=== PATIENT | female | born 1935 | race Hispanic/Latino ===

== ENCOUNTER 2017-03-20 04:34 | Observation (INO) | payer MEDICARE ==
[~2017-03-20] VITALS: Ht 152.4 cm; Wt 64.9 kg
[~2017-03-20 04:34] MED LIST: ADV500 IH; ASPI-1197 PO; CEFD300C3 PO; CLOP75TA14 PO; FURO20TA6 GT; LACT1CAP58 PO; LEVO125T95 PO; LEVO500T2 PO; LISI-613 PO; LISI-617 PO; LORA1TAB3 PO; LOVA10TA2 PO; METO-408 PO; ONDA8TAB5 PO; POTA8TAB7 PO; PRED20TA3 PO; TYL3 PO
[2017-03-20] MEDS ORDERED: SODIUM CHLORIDE 0.9% 1000ML 1,000 ML IV ONE (04:42)
[2017-03-20] MEDS ORDERED: HYDROXYZINE HCL 25 MG TABLET ONE (04:42)
[2017-03-20 06:24] LABS: BASOPHILS % (AUTO) 0.3 % (0.0-5.0); HEMATOCRIT 34.9 % (36-48); LYMPHOCYTES % (AUTO) 27.2 % (21.0-51.0); MEAN CORPUSCULAR HEMOGLOBIN 35.1 pg (27.0-33.0); MEAN CORPUSCULAR HGB CONC 34.4 g/dL (32.0-36.0); MEAN CORPUSCULAR VOLUME 102.1 fL (79-99); MONOCYTES % (AUTO) 10.7 % (3.0-13.0); NEUTROPHILS % (AUTO) 60.8 % (40.0-77.0); PLATELET COUNT (AUTO) 436 K/uL (130-400); RED BLOOD CELL COUNT(AUTO) 3.41 MIL/uL (4.00-5.50); RED CELL DISTRIBUTION WIDTH 13.9 % (11.0-15.5); WHITE BLOOD COUNT (AUTO) 8.5 K/uL (4.8-10.8)
[2017-03-20 06:31] LABS: CREATININE 0.7 mg/dL (0.5-1.5); POTASSIUM 3.6 mmol/L (3.5-5.1)
[2017-03-20 06:45] LABS: THYROID STIMULATING HORMONE 4.42 uIU/mL (0.36-3.74)
[2017-03-20 06:56] LABS: APPEARANCE,URINE CLEAR (CLEAR); BILIRUBIN,URINE NEGATIVE (NEGATIVE); COLOR,URINE YELLOW (YELLOW); GLUCOSE, URINE (UA) NEGATIVE (NEGATIVE); KETONES,URINE NEGATIVE (NEGATIVE); LEUKOCYTE ESTERASE ,URINE TRACE (NEGATIVE); NITRATE,URINE NEGATIVE (NEGATIVE); OCCULT BLOOD,URINE TRACE-LYSED (NEGATIVE); PROTEIN,URINE NEGATIVE (NEGATIVE); UROBILINOGEN,URINE 0.2 mg/dL (0.2-1.0)
[2017-03-20] MEDS ORDERED: ASPIRIN 81MG TAB.CHEW ONE (07:30)
[2017-03-20 07:31] LABS: BACTERIA,URINE Rare /HPF (None Seen); RBC,URINE 0-1 /HPF (0-1); SQUAMOUS EPITHELIAL CELL,UR Rare /LPF (0-2)
[2017-03-20] MEDS ORDERED: GUAIFENESIN-DM 200/20 MG 10 ML PO PRN (08:45)
[2017-03-20] MEDS ORDERED: LACTULOSE 20 GM/30 ML UDCUP PO PRN (08:45)
[2017-03-20] MEDS ORDERED: MAG HYDROX/AL HYDROX/SIMETH ES 30 ML SUSP UDCUP PO PRN (08:45)
[2017-03-20] MEDS ORDERED: ONDANSETRON HCL 4 MG/2 ML VIAL IV PRN (08:45)
[2017-03-20] MEDS ORDERED: ACETAMINOPHEN 325 MG TAB PO PRN ×2 (08:45)
[2017-03-20] MEDS ORDERED: MORPHINE SULFATE 2 MG/ML 1ML SYG IV PRN (08:45)
[2017-03-20] MEDS: PANTOPRAZOLE SODIUM 40 MG TABLET.DR PO SCH (09:00)
[2017-03-20] MEDS ORDERED: LORAZEPAM 0.5 MG TABLET PO PRN (12:15)
[2017-03-20] MEDS ORDERED: CLONIDINE HCL 0.1 MG TABLET ONE (13:31)
[2017-03-20] MEDS ORDERED: PANTOPRAZOLE SODIUM 40 MG TABLET.DR PO ONE (17:53)
[2017-03-20] MEDS ORDERED: ONDANSETRON HCL 4 MG/2 ML VIAL ONE (20:19)
[2017-03-20] MEDS ORDERED: MORPHINE SULFATE 2 MG/ML 1ML SYG ONE (20:19)
[2017-03-20 21:20] VITALS: BP 127/75
[2017-03-20 23:45] VITALS: BP 135/81
[2017-03-21 04:00] VITALS: BP 136/86
[2017-03-21] MEDS: PANTOPRAZOLE SODIUM 40 MG TABLET.DR PO SCH (08:18)
[2017-03-21 08:51] VITALS: BP 131/74
[2017-03-21] MEDS ORDERED: ASPIRIN 325MG EC TAB 325 MG TABLET.DR PO SCH (09:00)
== END 2017-03-21 12:40 | disposition home or self-care (01) ==
LOC: EDH 04:34 → EDHIP 07:25 → 3BH 20:54
PROVIDERS: ADMIT Family Medicine; ATTEND Family Medicine
DX: I25.10 Atherosclerotic heart disease of native coronary artery without angina pectoris (principal); M19.90 Unspecified osteoarthritis, unspecified site; I10 Essential (primary) hypertension; F41.9 Anxiety disorder, unspecified; Z95.5 Presence of coronary angioplasty implant and graft; Z95.1 Presence of aortocoronary bypass graft; J44.9 Chronic obstructive pulmonary disease, unspecified
CPT/HCPCS: 36415; 71010; 80048; 81001; 83880; 84439; 84443; 84484 ×2; 85025; 87804 ×2; 93005 ×4; 99285; G0378 ×29; J2405; J7030